=== PATIENT | female | born 1965 | race Two or more races ===

== ENCOUNTER 2023-08-19 11:08 | Outpatient (REF) | payer OTHER, SELFPAY ==
--- NOTE | ~2023-08-19 | XR_ITS ---
EXAMINATION: XR KNEE, LEFT CLINICAL INFORMATION: Pain. COMPARISON: None available. TECHNIQUE: Four views of the left knee. FINDINGS: Medial compartment: There are prominent marginal osteophytes along with joint space narrowing indicative of at least moderate osteoarthritis. Lateral compartment marginal osteophytes with non-uniform joint space narrowing indicative of izzs-[id number] osteoarthritis. Patellofemoral compartment: Prominent marginal osteophytes and cystic change along with mild joint space narrowing indicative of at least dcim-ke-tlcykmmp osteoarthritis. No effusion. XR/XR knee LT 4V IMPRESSION: Tricompartmental osteoarthritis with degenerative changes at least moderate in the medial compartment.
[2023-08-19 12:02] LABS: MANUAL DIFF FLAG NO
[2023-08-19 12:27] LABS: Basophils Percent Auto 0.5 % (0-2); Eosinophils Absolute Auto 0.2 X10*3/uL (0.0-0.4); Eosinophils Percent Auto 3.3 % (0-4); Hematocrit 38.4 % (37.0-47.0); Hemoglobin 12.5 g/dl (12.0-16.0); Imm Gran Abs Auto 0.01 X10*3/uL (0.00-0.03); Imm Gran Pct Auto 0.2 % (0.0-0.4); Lymphocytes Absolute Auto 2.3 X10*3/uL (1.2-4.9); Lymphocytes Percent Auto 39.8 % (20-40); Mean Corpuscular HGB Conc 32.6 g/dl (31.0-35.0); Mean Corpuscular Hemoglobin 29.6 pg (27.0-33.0); Mean Platelet Volume 10.1 fL (9.4-12.3); Monocytes Absolute Auto 0.5 X10*3/uL (0.1-1.2); Monocytes Percent Auto 8.1 % (2-11); Neutrophils Absolute Auto 2.8 x10*3/uL (2.0-8.3); Neutrophils Percent Auto 48.1 % (45-73); Platelet Count 292 X10*3/uL (160-400); Red Blood Count 4.22 X10*6/uL (4.20-5.50); Red Cell Distribution Width 13.6 % (11.0-16.0); White Blood Count 5.8 X10*3/uL (4.8-10.8)
[2023-08-19 13:01] LABS: Alanine Aminotransferase 23 U/L (0-31); Albumin Level 4.3 g/dL (3.5-5.0); Alkaline Phosphatase 75 U/L (39-117); Anion Gap 10 (12-20); Aspartate Amino Transferase 18 U/L (5-31); Bilirubin Total 0.4 mg/dL (0.0-1.0); Blood Urea Nitrogen 15 mg/dL (9-16); Calcium 9.5 mg/dL (8.4-10.2); Carbon Dioxide 29 mmol/L (22-29); Chloride 106 mmol/L (96-108); Cholesterol 166 mg/dL (<200); Estimated Glomerular Filt Rate > 60; Glucose Random 99 mg/dL (60-115); HDL Cholesterol 38 mg/dL (>40); LDL Cholesterol Calculated 109 mg/dL (<100); Sodium 141 mmol/L (135-145); Total Protein 7.5 g/dL (6.5-8.0); Triglycerides 99 mg/dL (<150)
[2023-08-19 13:12] LABS: Estimated Average Glucose 126 mg/dL; Hemoglobin A1C 134.5167 umol/L
[2023-08-19 13:18] LABS: Thyroid Stimulating Hormone 1.67 uIU/mL (0.32-4.0)
[2023-08-22 03:49] LABS: TS Negative Control Passed; TS Panel A 0; TS Panel B 8; TS Positive Control Passed; TSpotTB Positive (Negative)
== END 2023-08-19 11:09 | disposition home or self-care (01) ==
LOC: HO.LAB 11:08
PROVIDERS: PCP Internal Medicine; Visit Provider Internal Medicine
DX: Z00.01 Encounter for general adult medical examination with abnormal findings (principal); M17.12 Unilateral primary osteoarthritis, left knee; E66.8 Other obesity; E78.00 Pure hypercholesterolemia, unspecified; I10 Essential (primary) hypertension; K59.00 Constipation, unspecified
CPT/HCPCS: 36415; 73564; 80053; 80061; 83036; 84443; 85025; 86481

== ENCOUNTER 2023-09-15 11:02 | Outpatient (AMB) | payer OTHER, SELFPAY ==
--- NOTE | 2023-09-15 11:10 | A.OFFVIS_ITS ---
Intake Visit Reasons: N/P B/L knee O.A Intake Note: Nasrin a 57 year old Macedonian speaking female who presents today as a new patient for an evaluation of bilateral knee pain. Patient reports knee pain has been present for about 4-5 years with her left knee being the worse. States her right knee gives out therefore she avoids bearing full weight on right leg. Her pain is located on the lateral and medial aspect of knees. She hears a crack with movement of her knees. States 30 years ago she had fluid removed from her left knee due to an injury. No other tx. Finds no relief with Tylenol. 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 She states she has worsening pain in her bilateral knees that is worse on her left knee. Her right knee gives out therefore she avoids bearing full weight on the right leg. She reports her pain is at the lateral aspect and medial aspect of her knees that is aggravated with stairs and walking. She also hears a ?crack? with movement of her knees. She has not had any prior treatment in the past. She finds no relief with Tylenol. PFSH Surgical History (Updated 09/15/23 @ 11:36 by ALEXSANDER Tenroio) Hx of tubal ligation Social History (Updated 09/15/23 @ 11:36 by ALEXSANDER Tenorio) Patient Tobacco Use Status: Never used Tobacco Current occupational status: unemployed Review of Systems Const All systems reviewed & are unremarkable except as noted in HPI and below Physical Exam Const General: cooperative, healthy appearing, comfortable, no acute distress, well developed and alert Orientation/consciousness: patient oriented x3 HEENT Head: Yes normal to inspection, Yes normocephalic and Yes atraumatic Eyes General: appearance normal, both eyes and all related structures Resp Effort & Inspection: normal respiratory effort and able to speak in complete sentences Cardio Rate: regular rate Peripheral pulses: Peripheral pulses 2+ throughout GI Palpation (GI): Soft to palpation Skin Lesions: no lesions Rashes: no rashes Neuro General: patient oriented x3 Extrem Other: Bilateral knee: Skin intact, no erythema or joint effusion. Tenderness along the medial and lateral joint line. Full ROM with crepitus. Negative Eun?s. No ligamentous laxity. NVI. ? Office Procedures Joint Injection/Drain Joint Injection/Drain Primary Site: right knee Secondary Site: left knee Prep: site was prepped using aseptic technique, ethochloride spray was applied and injection warnings given Injected: 40 mg of, DepoMedrol, with 8 mL of, 1% plain lidocaine and in the joint Approach Used: anterolateral Procedure: The patient tolerated the procedure well and there was some relief with the local anesthesia Coding 72985 - Glenohumeral/Tronchanteric Bursa/Intraarticular Procedure code (CPT) selection complete Results Reviewed Results Reviewed: Xrays were obtained in the office today and personally reviewed by me of bilat knee Tricompartmental osteoarthritis with degenerative changes at least moderate in the medial compartment. Assessment & Plan Assessment & Plan (1) Osteoarthritis of knees, bilateral: Code(s): M17.0 - Bilateral primary osteoarthritis of knee Category: Medical Qualifiers: Osteoarthritis type: primary Qualified Code(s): M17.0 - Bilateral primary osteoarthritis of knee Plan We discussed options today, which include steroid injection. The patient did consent to move forward with the bilateral knee injection, which was tolerated well. I recommended rest, ice, and elevation and OTC anti-inflammatories as needed for discomfort. If symptoms persist or worsen over the next 6-8 weeks, patient will contact the office, otherwise follow-up as needed. ? Orders: Orders XR knee RT 3V 09/15/23 M17.11 - Unilateral primary osteoarthritis, right knee XR knee LT 3V 09/15/23 M25.562 - Pain in left knee Patient Instructions: Scribed for Charlie Landis PA-C, by Rishi Sosa quality engineer medical device, on 09/15/2023 at 11:00 AM EST.? I, Charlie Landis PA-C, have personally reviewed and agree with the information entered by the scribe. Coding Level of Care Code New Pt Level 3 (50002) Diagnoses Primary osteoarthritis of both knees M17.0 Osteoarthritis type: primary CPT Codes Coding - Joint 7: 21036 - Glenohumeral/Tronchanteric Bursa/Intraarticular ([id number])
== END 2023-09-15 12:02 | disposition home or self-care (01) ==
LOC: HO.HOS 11:02
PROVIDERS: PCP Internal Medicine; Visit Provider Physician Assistant
DX: M17.0 Bilateral primary osteoarthritis of knee (principal)
CPT/HCPCS: 20610; 99203

== ENCOUNTER 2023-09-15 11:08 | Outpatient (REF) | payer OTHER, SELFPAY ==
--- NOTE | ~2023-09-15 | XR_ITS ---
EXAMINATION: XR BILATERAL KNEES CLINICAL INFORMATION: Unilateral primary osteoarthritis right knee. Pain left knee. COMPARISON: August 19, 2023. TECHNIQUE: AP standing, sunrise and lateral views of each knee. FINDINGS: LEFT KNEE: Moderate joint effusion. Tricompartmental osteophytes. Narrowing of the tricompartments is most marked in the medial compartment. Asymmetric lateral narrowing in the patellofemoral compartment. Bones are diffusely demineralized. RIGHT KNEE: Moderate joint effusion. Bones are diffusely demineralized. Tricompartmental osteophytes. Moderate tricompartmental joint space narrowing. XR/XR knee RT 3V IMPRESSION: Moderate degenerative changes bilateral knees.
--- NOTE | ~2023-09-15 | XR_ITS ---
EXAMINATION: XR BILATERAL KNEES CLINICAL INFORMATION: Unilateral primary osteoarthritis right knee. Pain left knee. COMPARISON: August 19, 2023. TECHNIQUE: AP standing, sunrise and lateral views of each knee. FINDINGS: LEFT KNEE: Moderate joint effusion. Tricompartmental osteophytes. Narrowing of the tricompartments is most marked in the medial compartment. Asymmetric lateral narrowing in the patellofemoral compartment. Bones are diffusely demineralized. RIGHT KNEE: Moderate joint effusion. Bones are diffusely demineralized. Tricompartmental osteophytes. Moderate tricompartmental joint space narrowing. XR/XR knee LT 3V IMPRESSION: Moderate degenerative changes bilateral knees.
== END 2023-09-15 11:09 | disposition home or self-care (01) ==
LOC: HO.HOSX 11:08
PROVIDERS: Visit Provider Physician Assistant
DX: M17.11 Unilateral primary osteoarthritis, right knee (principal); M25.562 Pain in left knee
CPT/HCPCS: 73562

== ENCOUNTER → 2023-09-15 13:52 | Outpatient (REF) | payer OTHER, SELFPAY ==
--- NOTE | 2023-09-15 13:55 | CA_ITS ---
Transthoracic Echocardiogram Patient (Last, First, Middle): Nasrin Valdivia, Gender: Female Date of : 1965 Age: 57 Procedure Date: 09/15/2023 Procedure Type: Transthoracic Echocardiogram Location: OP Height: 170.18 cm Weight: 120.2 kg BSA: 2.28 m2 Heart Rate: 82 bpm BP: 126 / 80 mmHg Dam Attendant: TO Referring MD: Ana Elizabeth MD Timber Packer: Dominik Shah MD Symptoms: HTN I.10 HTN Study Quality: Adequate w contrast ECG Rhythm: Sinus Conclusions: - 1. Normal LV ejection fraction of 55-60% 2. Cardiac valvular Doppler is within normal limits 3. Trivial pericardial effusion Findings Procedure Information Contrast agent, definity, is being given per protocol without apparent complications. Left Ventricle Normal left ventricular size, thickness, and systolic function. The visually estimated ejection fraction is between 55-60%. Spectral Doppler is indicative of a normal filling pattern. Right Ventricle Normal right ventricular cavity size and systolic function. Atria The left atrium is normal in size. Interatrial shunt cannot be excluded. The right atrium was not well visualized. Aortic Valve The aortic valve structure and function is likely normal. There is no aortic valve stenosis. There is no aortic valve regurgitation. Mitral Valve Normal mitral valve structure and function. There is trace mitral valve regurgitation. There is no mitral valve stenosis. Pulmonic Valve The pulmonic valve is likely normal. Tricuspid Valve Normal tricuspid valve structure. Tricuspid regurgitation envelope is inadequate for calculation of right ventricular systolic pressure. Normal right atrial pressure. Great Vessels All visible segments of the aorta are normal in size. The pulmonary artery was not well visualized. Venous The inferior vena cava is normal in size and collapses greater than 50% with inspiration. Pericardium/Pleural There is a trivial pericardial effusion. Prior Study Comparison No prior study available for comparison. Measurements 2D Linear Measurements IVSd: 1.12 0.6-0.9/0.6-1.0 cm LVIDd: 4.46 3.9-5.3/4.2-5.9 cm LVIDd Index: 1.96 2.4-3.2/2.2-3.1 cm/m2 LVIDs: 2.76 2.0-3.6 cm LVPWd: 0.89 0.7-1.1 cm LA Diam: 4.10 2.7-3.8/3.0-4.0 cm LAIDs Index: 1.80 1.5-2.3 cm/m2 LV Mass: 189.02 67-162/88-224 g LV Mass Index: 82.90 43-95/49-115 g/m2 LVOT Diam: 2.00 3.0+(-)1.3 cm 2D Systolic Function EF 4C: 59.50 >55% EF 2C: 61.50 >55% EF BiP: 59.20 >55% Mitral Valve MV Pk E: 0.97 MV PK A: 0.63 MV Decel Time: 165.00 E/A: 1.50 E'Lateral: 7.51 E'Medial: 5.77 E/E' Med: 16.80 E/E' Lat: 12.90 PHT: 48.00 MVA PHT: 4.58 Decel [place]: 5.88 Aortic Valve AoV Pk Adam: 1.65 AoV Mn Adam: 1.14 AoV VTI: 0.35 AoV Pk Grad: 11.00 Aov Mn Grad: 6.00 JAYCE Cont.VTI: 2.47 LVOT LVOT Pk Adam: 1.32 LVOT Mn Adam: 0.87 LVOT VTI: 0.28 LVOT Pk Grad: 7.00 LVOT Mn Grad: 3.00 LVOT Diam: 2.00 LVOT Area: 3.14 Diastolic Function MV Pk E: 0.97 MV Pk A: 0.63 E/A: 1.50 E'Medial: 5.77 E/E' Med: 16.80 E' Laterial: 7.51 E/E' Lat: 12.90 Right Ventricle TAPSE (mm): 25.60 TVS' Adam: 12.80 Tricuspid Valve RA Press: 3.00 Great Vessels Aorta Sinus of Valsalva: 3.02 2.0-3.5 cm Ao Asc: 3.30 2.1-3.4 cm Ao Arch: 3.10 Updated in Other Vendor System with Status of Final Dominik Shah MD electronically signed on 09/15/2023 4:05:25 PM with status of Final
== END ==
LOC: HO.CARD 13:52
PROVIDERS: PCP Internal Medicine; Visit Provider Internal Medicine
DX: I10 Essential (primary) hypertension (principal)
CPT/HCPCS: 20610; 93306; 99202; J1010; Q9957

== ENCOUNTER → 2023-09-15 13:55 | Outpatient (BNV) | payer OTHER, SELFPAY | PROVIDERS: PCP Internal Medicine; Visit Provider Internal Medicine Cardiovascular Disease | DX: I10 Essential (primary) hypertension (principal) | CPT/HCPCS: 93306 ==

== ENCOUNTER 2023-09-17 09:11 | Outpatient (REF) | payer OTHER, SELFPAY ==
--- NOTE | ~2023-09-17 | XR_ITS ---
EXAMINATION: XR CHEST CLINICAL INFORMATION: Positive TB test COMPARISON: None available. TECHNIQUE: 2 views of the chest were obtained. FINDINGS: No significant abnormality is noted involving the heart, lungs, mediastinum, bony thorax or soft tissues. XR/XR chest 2V IMPRESSION: Unremarkable examination.
== END 2023-09-17 09:12 | disposition home or self-care (01) ==
LOC: HO.XRAY 09:11
PROVIDERS: PCP Internal Medicine; Visit Provider Internal Medicine
DX: R76.11 Nonspecific reaction to tuberculin skin test without active tuberculosis (principal)
CPT/HCPCS: 71046

== ENCOUNTER 2023-10-14 11:31 | Outpatient (AMB) | payer OTHER, SELFPAY ==
--- NOTE | 2023-10-14 11:35 | MHC.OFFVIS ---
Vital Signs 10/14/23 11:36 Height 5 ft 7 in Weight 257 lb 15.053 oz BMI 40.4 BP 116/61 Blood Pressure Location Lt brachial Position Sitting Pulse 80 Intake Visit Reasons: colonoscopy Intake Note: Nasrin presents to in office visit today as a new patient for colonoscopy screening. CC: Patient c/o constipation, and hx of rectal bleeding. She also reports abdominal bloating and discomfort when constipated. Assistant Branch Manager Required: Yes Accompanied by: Daughter Allergies No Known Allergies Allergy (Verified 10/14/23 11:42) HPI HPI colonoscopy: Details: 57-year-old female here for preprocedural meeting to discuss a screening colonoscopy. She is referred by Lillie Elizabeth. PMX Morbid obesity Hypertension High cholesterol * SURGICAL HISTORY Tubal ligation * ALLERGIES: NKDA * iBid2Save LABS: Laboratory Tests 08/19/23 11:59 WBC 5.8 Hgb 12.5 Hct 38.4 Plt Count 292 Estimated GFR > 60 Total Bilirubin 0.4 AST 18 ALT 23 Alkaline Phosphatase 75 TSH 1.67 TODAY'S VISIT [facility] #[id number] [place] She is here with a female family member who is non participative. This is her first colonoscopy. She struggles with CIC and she tries to increase her fiber and takes pills but they don't work very well. IT is an OTC. She would like to try a more advanced approach since she has failed fiber, senna, miralax and dulcolax. There are no prior problems with anesthesia or sedation. There are no infectious disease problems. Start LInzess 145 and titrate No known FHX crc or polyps Return office visit in 2 weeks to evaluate her response to the Linzess. [facility] Medical History (Updated 10/14/23 @ 12:39 by DANNY Rea) Obesity, morbid High cholesterol Hypertension Surgical History (Updated 09/15/23 @ 11:36 by Anita Fiore A) Hx of tubal ligation Family History (Updated 10/14/23 @ 11:42 by [facility] Father Cancer of neck Brother Leukemia Paternal Aunt Vaginal cancer Social History (Updated 10/06/23 @ 09:50 by Jo Cavazos CCM) Alcohol intake: current Alcohol intake frequency: holidays/special occasions only Patient Tobacco Use Status: Never used Tobacco Use of substances other than those prescribed or required for medical reasons: No Current occupational status: unemployed Review of Systems Const Denies fatigue, Denies fever(s), Denies night sweats, Denies poor appetite and Denies weight loss ENT Reports Normal hearing present, Denies dental pain, Denies dysphagia, Denies hearing loss, Denies mouth pain, Denies odynophagia, Denies throat swelling, Denies tongue swelling and Reports other (Dentition adequate) Card Reports no additional complaints Resp Reports no additional complaints GI Details: Denies abdominal pain, Denies melena, Denies bloating, Denies hematochezia, Reports constipation, Denies GI cramping, Denies dysphagia, Denies excessive flatus, Denies early satiety, Denies heartburn, Denies diarrhea, Denies nausea, Denies odynophagia, Denies vomiting and Denies hematemesis Skin/Breast Denies pruritus, Denies lesions, Denies rash and Denies jaundice Neuro Reports Normal hearing present and Denies Abnormal speech present Endo Denies fatigue Aller/Immun Denies throat swelling and Denies tongue swelling Physical Exam Vital Signs: Last Vital Signs Pulse 80 10/14/23 11:36 BP 116/61 10/14/23 11:36 BMI result Body Mass Index 40.4 Const General: cooperative, no acute distress, well developed and well groomed Nutritional Appearance: well nourished and obese Orientation/consciousness: oriented to person, oriented to place and oriented to time Limitations: language barrier HEENT Head: Yes normocephalic and Yes atraumatic Eyes General: appearance normal, both eyes and all related structures Pupils: Equal, round and reactive pupils present Neck Neck: Yes normal visual inspection and Yes no lymphadenopathy Thyroid: Thyroid normal Resp Effort & Inspection: normal respiratory effort and able to speak in complete sentences Auscultation: clear to auscultation bilaterally Cardio Rate: regular rate Rhythm: regular rhythm Heart sounds: Normal, physiologic split S2 sound present Peripheral pulses: radial pulses present and posterior tibial pulses present GI Inspection: No distended, Yes Abdominal panniculus present and Yes obesity Palpation (GI): Soft to palpation, nontender, no guarding, not rigid and No hepatosplenomegaly present Percussion: Yes normal to percussion Auscultation: normal bowel sounds Rectal Exam - Female: deferred Skin General skin exam: no rashes or lesions noted, turgor normal, skin not dry, no jaundice, No spider nevi and no striae Rashes: no rashes Nails: normal Neuro General: oriented to person, oriented to place and oriented to time Cranial nerves: Yes Equal, round and reactive pupils present and Yes Normal hearing present Speech: No Abnormal speech present Extrem General: Yes normal to inspection, No clubbing, No cyanosis and No edema Psych Appearance: grossly normal and well kempt Mental Status: mental status grossly normal Speech and movement: Normal speech and movement present Affect: normal affect Attitude: cooperative Thought process: Normal thought process present and not confabulating Thought content: Normal thought content present Insight: Fair insight present (Psych) Judgement: Fair judgement present (Psych) Results Reviewed Results Reviewed: Laboratory Tests 08/19/23 11:59 WBC 5.8 Hgb 12.5 Hct 38.4 Plt Count 292 Estimated GFR > 60 Total Bilirubin 0.4 AST 18 ALT 23 Alkaline Phosphatase 75 TSH 1.67 Assessment & Plan Assessment & Plan (1) Pre-op examination: Code(s): Z01.818 - Encounter for other preprocedural examination Category: Medical (2) Chronic idiopathic constipation: Code(s): K59.04 - Chronic idiopathic constipation Category: Medical Plan [facility] #[id number] [place] She is here with a female family member who is non participative. This is her first colonoscopy. She struggles with CIC and she tries to increase her fiber and takes pills but they don't work very well. IT is an OTC. She would like to try a more advanced approach since she has failed fiber, senna, miralax and dulcolax. There are no prior problems with anesthesia or sedation. There are no infectious disease problems. Start LInzess 145 and titrate No known FHX crc or polyps Return office visit in 2 weeks to evaluate her response to the Linzess. COLONOSCOPY BIOPSY Orders: Orders Colonoscopy - GI Use Only 10/14/23 K59.04 - Chronic idiopathic constipation, Z01.818 - Encounter for other preprocedural examination Medications: New peg 3350-electrolytes 236-22.74-6.74 -5.86 gram (Golytely) until fecal effluent is clear; do not exceed a total volume of 2,000 mL 240 mL PO Q10M 4,000 mL 0RF 1 day Z12.11 - Encounter for screening for malignant neoplasm of colon bisacodyl (Dulcolax (bisacodyl)) 10 mg (2 x 5 mg) PO BEDTIME 4 tabs 0RF 2 days linaclotide (Linzess) 145 mcg PO QAM 30 caps 3RF K59.04 - Chronic idiopathic constipation Coding Level of Care Code New Pt Level 3 (42653) Diagnoses Pre-op examination Z01.818 Chronic idiopathic constipation K59.04
[2023-10-14 11:36] VITALS: BP 116/61; PULSE 80; BMI 40.4
== END 2023-10-14 12:44 | disposition home or self-care (01) ==
PROVIDERS: PCP Internal Medicine; Visit Provider Nurse Practitioner
DX: Z01.818 Encounter for other preprocedural examination (principal); K59.04 Chronic idiopathic constipation
CPT/HCPCS: 99203

== ENCOUNTER → 2023-10-14 11:31 | Outpatient (BNVA) | payer OTHER, SELFPAY | PROVIDERS: PCP Internal Medicine; Visit Provider Nurse Practitioner | DX: Z01.818 Encounter for other preprocedural examination (principal); K59.04 Chronic idiopathic constipation | CPT/HCPCS: 99202 ==

== ENCOUNTER 2023-10-15 12:59 | Outpatient (RCR) | payer OTHER, SELFPAY ==
--- NOTE | 2023-10-15 15:56 | MHC.PT.EP ---
[facility] [place] Office [place] Office [place] Office [address] [phone] F: [phone] F: [phone] F: [phone] F: [phone] Physical Therapy Plan of Care Date of Evaluation: 10/15/23 Date of Surgery: Diagnosis: LBP. Assessment: Pt is a 57 y/o female referred to PT for eval and treat of LBP which is resulting in decreased tolerance for standing and walking for duration, performing HH chores, and negotiating stairs secondary to decreased L LE length compared to R, decreased trunk ROM, decreased trunk and hip strength, increased lumbar lordosis posture and pain. Pt is deemed an appropriate candidate to receive skilled PT services to address their physical impairments in order to improve their functional ability. Frequency and Duration: The patient will be seen 2 x/ wk x 4 wks. Short Term Goals: initiate home program. Pt will improve baseline pain to at most 5/10; initial: 9/10. Usp Goals: I with home program. Improve Hailey by at least 9 points. Pt will report no longer disturbed sleep d/t LBP. Pt will be able to tolerate walking long distances with managed LBP. Treatment Plan: Modalities to reduce pain, spasms and effusion. Manual therapy to restore motion and function. Therapeutic exercise to improve strength and flexibility. Neuromuscular re-education for posture and balance. Therapeutic activities to return to functional activities of daily living. Electronically signed by: Michael Story PT. Please sign and return to therapist. Thank you for your referral.
--- NOTE | 2023-12-30 14:18 | MHC.PT.DC ---
[facility] [place] Office [place] Office [place] Office [address] Solomon Peres [address] [phone] F: [phone] F: [phone] F: [phone] F: [phone] Physical Therapy Discharge Report Diagnosis: LBP. Date of Surgery: Date of Evaluation: 10/15/23 Date of Discharge: 12/30/23 Treatments to Date: 1 Cancellations to Date: 2 No Shows to Date: 1 Discharge Status: Patient Elected to Stop Visit Non-compliance Discharge Summary: Pt did not attempt PT for her condition logging 2 cancellations and a no-show appointment after her evaluation without following up with therapy. Electronically signed by: Michael Story PT. Please sign and return to therapist. Thank you for your referral.
== END 2023-12-30 14:22 | disposition home or self-care (01) ==
LOC: HO.PT 12:59
PROVIDERS: PCP Internal Medicine; Visit Provider Internal Medicine
DX: M54.50 Low back pain, unspecified (principal)
CPT/HCPCS: 97110; 97161

== ENCOUNTER 2023-12-16 12:51 | Outpatient (AMB) | payer OTHER, SELFPAY ==
--- NOTE | 2023-12-16 12:59 | MHC.OFFVIS ---
Vital Signs 12/16/23 13:02 Height 5 ft 7 in Weight 257 lb BMI 40.2 Intake Visit Reasons: OV-B/L knee O.A-3 month follow up Intake Note: Nasrin a 57 year old German speaking female who presents today for a follow up of bilateral knee pain, last injection 09/15/23. Patient reports last injection provided her relief, states her pain is returned however not as bad as before. She would like to repeat injections. Facilities Planner Name: Devonte ID#[id number] Allergies No Known Allergies Allergy (Verified 12/16/23 13:02) Medication List - Last Reconciled 12/16/23 by Charlie Landis PA-C bisacodyl (Dulcolax (bisacodyl)) 10 mg (2 x 5 mg) PO BEDTIME 2 days ezetimibe 10 mg PO DAILY linaclotide (Linzess) 145 mcg PO QAM losartan 100 mg PO DAILY melatonin mg PO peg 3350-electrolytes 236-22.74-6.74 -5.86 gram (Golytely) 240 mL PO Q10M 1 day rosuvastatin 40 mg PO DAILY HPI HPI OV-B/L knee O.A-3 month follow up: Details: 58-year-old German speaking female who returns to the office today with an foreign language interpreter for a follow-up of bilateral knee pain. She currently states she has pain in her knees that comes with activities. She had her last injection on 09/15/23 that provided her relief until recently. She would like to repeat the injection today. She does not have a history of diabetes. [facility] Medical History (Updated 10/14/23 @ 12:39 by DANNY Rea) Obesity, morbid High cholesterol Hypertension Surgical History Hx of tubal ligation Family History (Updated 10/14/23 @ 11:42 by [facility] Father Cancer of neck Brother Leukemia Paternal Aunt Vaginal cancer Social History Alcohol intake: current Alcohol intake frequency: holidays/special occasions only Patient Tobacco Use Status: Never used Tobacco Current occupational status: unemployed Review of Systems Const All systems reviewed & are unremarkable except as noted in HPI and below Physical Exam Vital Signs: BMI result Body Mass Index 40.2 Const General: cooperative, healthy appearing, comfortable, no acute distress, well developed and alert Orientation/consciousness: patient oriented x3 HEENT Head: Yes normal to inspection, Yes normocephalic and Yes atraumatic Eyes General: appearance normal, both eyes and all related structures Resp Effort & Inspection: normal respiratory effort and able to speak in complete sentences Cardio Rate: regular rate Peripheral pulses: Peripheral pulses 2+ throughout GI Palpation (GI): Soft to palpation Skin Lesions: no lesions Rashes: no rashes Neuro General: patient oriented x3 Extrem Other: Bilateral knee: Skin intact, no erythema or joint effusion. Tenderness along the medial and lateral joint line. Full ROM with crepitus. Negative Eun?s. No ligamentous laxity. NVI. ? Office Procedures Joint Injection/Aspiration Joint Injection/Aspiration Primary Site: right knee Secondary Site: left knee Prep: site was prepped using aseptic technique, ethochloride spray was applied and injection warnings given Injected: 40 mg of, DepoMedrol, with 8 mL of, 1% plain lidocaine and in the joint Approach Used: anterolateral Procedure: The patient tolerated the procedure well and there was some relief with the local anesthesia Coding 46640 - Glenohumeral/Tronchanteric Bursa/Intraarticular Procedure code (CPT) selection complete Assessment & Plan Assessment & Plan (1) Osteoarthritis of knees, bilateral: Code(s): M17.0 - Bilateral primary osteoarthritis of knee Category: Medical Qualifiers: Osteoarthritis type: primary Qualified Code(s): M17.0 - Bilateral primary osteoarthritis of knee Plan We discussed options today, which include steroid injection. The patient did consent to move forward with the bilateral knee injection, which was tolerated well. I recommended rest, ice, and elevation and OTC anti-inflammatories as needed for discomfort. If symptoms persist or worsen martin the 6-8 weeks, patient will contact the office, otherwise follow-up as needed. Patient Instructions: Scribed for Charlie Landis PA-C, by Rishi Sosa medical services coordinator, on 12/16/2023 at 12:45 PM EST.? I, Charlie Landis PA-C, have personally reviewed and agree with the information entered by the scribe. Coding Level of Care Code Est Pt Level 3 (21195) Complex EM visit Add On G2211 Diagnoses Primary osteoarthritis of both knees M17.0 Osteoarthritis type: primary CPT Codes Coding - Joint 7: 49156 - Glenohumeral/Tronchanteric Bursa/Intraarticular ([id number])
[2023-12-16 13:02] VITALS: BMI 40.2
== END 2023-12-16 13:30 | disposition home or self-care (01) ==
LOC: HO.HOS 12:51
PROVIDERS: PCP Internal Medicine; Visit Provider Physician Assistant
DX: M17.0 Bilateral primary osteoarthritis of knee (principal)
CPT/HCPCS: 20610; 99213

== ENCOUNTER 2023-12-16 13:34 | Outpatient (REF) | payer OTHER, SELFPAY ==
--- NOTE | ~2023-12-16 | MM_ITS ---
EXAMINATION: MM SCREENING DIGITAL BREAST TOMOSYNTHESIS, BILATERAL CLINICAL INFORMATION: Screening. Asymptomatic. COMPARISON: Mammography: Comparison is made with available priors TECHNIQUE: Digital breast mammography with tomosynthesis is performed in both the craniocaudal and mediolateral oblique views along with computer-aided detection (CAD). FINDINGS: There are scattered areas of fibroglandular density (ACR BI-RADS breast composition Category b). 2 skin keloid scars marked on the right medial breast. There are no significant masses, abnormal calcifications, or other abnormalities. MM/MM tomosynthesis screening BI IMPRESSION: No mammographic evidence of malignancy. ASSESSMENT: BI-RADS BI-RADS 1 - Negative RECOMMENDATION: Routine annual mammography screening. 1 year F/U This examination should not preclude the clinical evaluation of a suspicious palpable abnormality. This patient's information was entered into a reminder system with a target due date for their next mammogram. Electronically signed by: Giselle Card DO 12/29/2023 11:57 AM EDT
== END 2023-12-16 13:35 | disposition home or self-care (01) ==
LOC: HO.MAMMO 13:34
PROVIDERS: PCP Internal Medicine; Visit Provider Internal Medicine
DX: Z12.31 Encounter for screening mammogram for malignant neoplasm of breast (principal)
CPT/HCPCS: 20610; 77063; 77067; 99212; J1010

== ENCOUNTER → 2023-12-16 14:15 | Outpatient (BNV) | payer OTHER, SELFPAY | PROVIDERS: PCP Internal Medicine; Visit Provider Internal Medicine | DX: Z12.31 Encounter for screening mammogram for malignant neoplasm of breast (principal) | CPT/HCPCS: 77063; 77067 ==

== ENCOUNTER 2024-01-18 11:57 | Outpatient (AMB) | payer OTHER, SELFPAY ==
--- NOTE | 2024-01-18 12:16 | A.OFFVIS_ITS ---
Vital Signs 01/18/24 12:18 Height 5 ft 7 in Weight 244 lb 11.41 oz BMI 38.3 BP 124/68 Blood Pressure Location Rt brachial Position Sitting Pulse 66 Pulse Source Pulse Oximeter Pulse Oximetry (%) 99 Oxygen Delivery Method Room Air Intake Visit Reasons: 2 week follow up PT N/S last appt Intake Note: Relevant Flags or Indicators ? Requires Fire Investigation Lieutenant? Y Nasrin presents in office today for a scheduled 3 mos FUV CC; Since last visit; labs ordered ? none. Rx ordered ? yes (PEG prep and linzes s). Diagnostics/images ordered ? none. Relevant GI Sx as reported per pt? Fecal abnormalities o?? Constipation ? Abdominal Pain o?? Lower B/L present mostly when having BM which pt states takes much longer than normal. ? Hx of any recent surgeries? None Fire Investigation Lieutenant Required: Yes Fire Investigation Lieutenant Services: Fire Investigation Lieutenant Present Fire Investigation Lieutenant Name: [id number] -- David Accompanied by: Family/Other Allergies No Known Allergies Allergy (Verified 01/18/24 12:17) HPI HPI 2 week follow up PT N/S last appt: Details: Thai #[id number] [place] She is here with a female family member who is non participative. THis is her first colonoscopy. She struggles with CIC and she tries to increase her fiber and takes pills but they don't work very well. IT is an OTC. She would like to try a more advanced approach since she has failed fiber, senna, miralax and dulcolax. Start LInzess 145 acd titrate No known FHX crc or polypls Assessment & Plan (1) Pre-op examination: Code(s): Z01.818 - Encounter for other preprocedural examination Category: Medical (2) Chronic idiopathic constipation: Code(s): K59.04 - Chronic idiopathic constipation Category: Medical Orders: Orders Colonoscopy - GI Use Only Today K59.04 - Chronic idiopathic constipation, Z01.818 - Encounter for other preprocedural examination Medications: New peg 3350-electrolytes 236-22.74-6.74 -5.86 gram (Golytely) until fecal effluent is clear; do not exceed a total volume of 2,000 mL 240 mL PO Q10M 1 day 4,000 mL 0RF Z12.11 - Encounter for screening for malignant neoplasm of colon bisacodyl (Dulcolax (bisacodyl)) 10 mg (2 x 5 mg) PO BEDTIME 2 days 4 tabs 0RF linaclotide (Linzess) 145 mcg PO QAM 30 caps 3RF K59.04 - Chronic idiopathic constipation COLONOSCOPY BIOPSY CORRESPONDENCE On 12/02/23 @ 09:11 Tish Ramey Wrote To [facility] office has made several attempts to get ahold of pt 2calls and a letter was mailed. no response from pt removing from list. On 11/17/23 @ 09:54 Tish Ramey Wrote To [facility] left another message and letter rachel. On 11/01/23 @ 08:10 Tish Ramey Wrote To [facility] lvm, added to spread sheet. Tish Ramey completed item. TODAY'S VISIT Thai # Annamaria live Walking to schedulers with cage maker. Verify that all of her contact information seems to be appropriate so I am uncertain why she is having trouble getting her colonoscopy scheduled. No response with LInzess 145, will progress to LInzess 290 and bisacodyl qhs. ROV 2 weeks. PFSH Medical History Obesity, morbid High cholesterol Hypertension Surgical History Hx of tubal ligation Family History Father Cancer of neck Brother Leukemia Paternal Aunt Vaginal cancer Social History Alcohol intake: current Alcohol intake frequency: holidays/special occasions only Patient Tobacco Use Status: Never used Tobacco Current occupational status: unemployed Review of Systems Const Denies fatigue, Denies fever(s), Denies night sweats, Denies poor appetite and Denies weight loss ENT Reports Normal hearing present, Denies dental pain, Denies dysphagia, Denies hearing loss, Denies mouth pain, Denies odynophagia, Denies throat swelling, Denies tongue swelling and Reports other (Dentition adequate) Card Reports no additional complaints Resp Reports no additional complaints GI Details: Denies abdominal pain, Denies melena, Denies bloating, Denies hematochezia, Reports constipation, Denies GI cramping, Denies dysphagia, Denies excessive flatus, Denies early satiety, Denies heartburn, Denies diarrhea, Denies nausea, Denies odynophagia, Denies vomiting and Denies hematemesis Skin/Breast Denies pruritus, Denies lesions, Denies rash and Denies jaundice Neuro Reports Normal hearing present and Denies Abnormal speech present Endo Denies fatigue Aller/Immun Denies throat swelling and Denies tongue swelling Physical Exam Vital Signs: Last Vital Signs Pulse 66 01/18/24 12:18 BP 124/68 01/18/24 12:18 Pulse Ox 99 01/18/24 12:18 Oxygen Delivery Method Room Air 01/18/24 12:18 BMI result Body Mass Index 38.3 Const General: cooperative, no acute distress, well developed and well groomed Nutritional Appearance: well nourished and obese Orientation/consciousness: oriented to person, oriented to place and oriented to time Limitations: language barrier HEENT Head: Yes normocephalic and Yes atraumatic Eyes General: appearance normal, both eyes and all related structures Pupils: Equal, round and reactive pupils present Neck Neck: Yes normal visual inspection and Yes no lymphadenopathy Thyroid: Thyroid normal Resp Effort & Inspection: normal respiratory effort and able to speak in complete sentences Auscultation: clear to auscultation bilaterally Cardio Rate: regular rate Rhythm: regular rhythm Heart sounds: Normal, physiologic split S2 sound present Peripheral pulses: radial pulses present and posterior tibial pulses present GI Inspection: No distended, Yes Abdominal panniculus present and Yes obesity Palpation (GI): Soft to palpation, nontender, no guarding, not rigid and No hepatosplenomegaly present Percussion: Yes normal to percussion Auscultation: normal bowel sounds Rectal Exam - Female: deferred Skin General skin exam: no rashes or lesions noted, turgor normal, skin not dry, no jaundice, No spider nevi and no striae Rashes: no rashes Nails: normal Neuro General: oriented to person, oriented to place and oriented to time Cranial nerves: Yes Equal, round and reactive pupils present and Yes Normal hearing present Speech: No Abnormal speech present Extrem General: Yes normal to inspection, No clubbing, No cyanosis and No edema Psych Appearance: grossly normal and well kempt Mental Status: mental status grossly normal Speech and movement: Normal speech and movement present Affect: normal affect Attitude: cooperative Thought process: Normal thought process present and not confabulating Thought content: Normal thought content present Insight: Fair insight present (Psych) Judgement: Fair judgement present (Psych) Assessment & Plan Assessment & Plan (1) Chronic idiopathic constipation: Code(s): K5.04 - Chronic idiopathic constipation Category: Medical Plan Thai # Annamaria sonya Walking to schedulers with cage maker. Verify that all of her contact information seems to be appropriate so I am uncertain why she is having trouble getting her colonoscopy scheduled. No response with LInzess 145, will progress to LInzess 290 and bisacodyl qhs. ROV 2 weeks. Medications: New linaclotide (Linzess) 290 mcg PO QAM 30 caps 6RF 30 days K5. - Chronic idiopathic constipation Changed From bisacodyl (Dulcolax (bisacodyl)) 10 mg (2 x 5 mg) PO BEDTIME 2 days 4 tabs 0RF K5. - Chronic idiopathic constipation To bisacodyl (Dulcolax (bisacodyl)) 10 mg (2 x 5 mg) PO BEDTIME 60 tabs 6RF 30 days K5. - Chronic idiopathic constipation Discontinued linaclotide (Linzess) Discontinued Reason: Doctor's Order 145 mcg PO QAM 30 caps 3RF K5. - Chronic idiopathic constipation Coding Level of Care Code Est Pt Level 3 (90738) Diagnoses Chronic idiopathic constipation .
[2024-01-18 12:18] VITALS: BP 124/68; PULSE 66; O2SAT 99; BMI 38.3
== END 2024-01-18 12:53 | disposition home or self-care (01) ==
PROVIDERS: PCP Internal Medicine; Visit Provider Nurse Practitioner
DX: K59.04 Chronic idiopathic constipation (principal)
CPT/HCPCS: 99213

== ENCOUNTER → 2024-01-18 11:57 | Outpatient (BNVA) | payer OTHER, SELFPAY | PROVIDERS: PCP Internal Medicine; Visit Provider Nurse Practitioner | DX: Z01.818 Encounter for other preprocedural examination (principal); K59.04 Chronic idiopathic constipation | CPT/HCPCS: 99212 ==

== ENCOUNTER 2024-01-28 15:00 | Outpatient (RCR) | payer OTHER, SELFPAY ==
--- NOTE | 2024-01-18 16:26 | MHC.PT.EP ---
[facility] [place] Office [place] Office [place] Office [address] Solomon Peres [address] [phone] F: [phone] F: [phone] F: [phone] F: [phone] Physical Therapy Plan of Care Date of Evaluation: 01/18/24 Date of Surgery: NA Diagnosis: BACK AND KNEE PAIN Assessment: Pt IS 58 YO F REFERRED TO PT FROM DR WOODS WITH KNEE PAIN AND BACK PAIN. Pt REPORTS BACK BOTHERING HER MORE THAN KNEES (HAS HAD CORTISONE INJECTIONS WITH RELIEF). PRESENTS WITH LBP, INCREASED LORDOSIS, WEAK ABDOMINALS, SOME DECREASED L KNEE FLEXION. HAS NOT HAD PT IN PAST. SHOULD BENEFIT FROM PT TO ADDRESS THESE ISSUES Frequency and Duration: The patient will be seen 2X/WK X 6 WKS Short Term Goals: 1. INCREASED POSTURE AWARENESS AND AWARENESS OF BACK CARE 2. Pt TO PERF 2-3 TASKS WITH PROPER BODY MECH Clinic Physician Goals: 1. I HEP WITH DC EX PLAN 2. DECREASED BACK PAIN AT LEAST 50% WITH ADLS Treatment Plan: Modalities to reduce pain, spasms and effusion. Manual therapy to restore motion and function. Therapeutic exercise to improve strength and flexibility. Neuromuscular re-education for posture and balance. Therapeutic activities to return to functional activities of daily living. Electronically signed by: KIM SIM PT Please sign and return to therapist. Thank you for your referral.
--- NOTE | 2024-03-21 10:53 | MHC.PT.DC ---
[facility] [place] Office [place] Office [place] Office [address] Solomon Peres [address] [phone] F: [phone] F: [phone] F: [phone] F: [phone] Physical Therapy Discharge Report Diagnosis: BACK AND KNEE PAIN Date of Surgery: NA Date of Evaluation: 01/18/24 Date of Discharge: 03/21/24 Treatments to Date: 3 Cancellations to Date: 0 No Shows to Date: 0 Discharge Status: Patient Elected to Stop Discharge Summary: PER ASSESSMENT FROM LAST NOTE BY DILCIA JARRELL CHIMNEY BUILDER BRICK Pt with overall decrease in sxs today and so increased tolerance for exercises. No discomfort throughout and significantly improved ease of motion noted. Continue to progress core stab/stretching as able. Pt THEN CANCELLED HER LAST 4 VISITS NEW JOB PER CREDIT CONTROL ADMINISTRATOR Electronically signed by: KIM SIM PT Please sign and return to therapist. Thank you for your referral.
== END 2024-03-21 10:53 | disposition home or self-care (01) ==
LOC: HO.PT 15:00
PROVIDERS: PCP Internal Medicine; Visit Provider Internal Medicine
DX: M54.9 Dorsalgia, unspecified (principal); M25.562 Pain in left knee
CPT/HCPCS: 97110; 97161; 97535

== ENCOUNTER → 2024-06-12 00:05 | Outpatient (BNV) | payer OTHER, SELFPAY | PROVIDERS: Emergency Provider Emergency Medicine; PCP Internal Medicine; Visit Provider Radiology Diagnostic Radiology | DX: M54.2 Cervicalgia (principal); R51.9 Headache, unspecified; V89.2XXA Person injured in unspecified motor-vehicle accident, traffic, initial encounter | CPT/HCPCS: 70450; 72125 ==

== ENCOUNTER 2024-06-12 11:58 | Outpatient (REF) | payer OTHER, SELFPAY ==
[2024-06-12 12:15] LABS: MANUAL DIFF FLAG NO
[2024-06-12 12:38] LABS: Basophils Percent Auto 0.3 % (0-2); Eosinophils Absolute Auto 0.1 X10*3/uL (0.0-0.4); Eosinophils Percent Auto 2.2 % (0-4); Hematocrit 35.7 % (37.0-47.0); Hemoglobin 11.9 g/dl (12.0-16.0); Imm Gran Abs Auto 0.02 X10*3/uL (0.00-0.03); Imm Gran Pct Auto 0.3 % (0.0-0.4); Lymphocytes Absolute Auto 2.1 X10*3/uL (1.2-4.9); Lymphocytes Percent Auto 36.2 % (20-40); Mean Corpuscular HGB Conc 33.3 g/dl (31.0-35.0); Mean Corpuscular Hemoglobin 30.3 pg (27.0-33.0); Mean Corpuscular Volume 90.8 fL (80.0-98.0); Mean Platelet Volume 9.4 fL (9.4-12.3); Monocytes Absolute Auto 0.4 X10*3/uL (0.1-1.2); Monocytes Percent Auto 7.3 % (2-11); Neutrophils Absolute Auto 3.1 x10*3/uL (2.0-8.3); Neutrophils Percent Auto 53.7 % (45-73); Platelet Count 307 X10*3/uL (160-400); Red Blood Count 3.93 X10*6/uL (4.20-5.50); Red Cell Distribution Width 13.5 % (11.0-16.0); White Blood Count 5.9 X10*3/uL (4.8-10.8)
[2024-06-12 13:28] LABS: Alanine Aminotransferase 24 U/L (0-31); Albumin Level 4.2 g/dL (3.5-5.0); Alkaline Phosphatase 68 U/L (39-117); Anion Gap 9 (12-20); Aspartate Amino Transferase 20 U/L (5-31); Bilirubin Total 0.3 mg/dL (0.0-1.0); Blood Urea Nitrogen 13 mg/dL (9-16); Calcium 9.2 mg/dL (8.4-10.2); Carbon Dioxide 30 mmol/L (22-29); Chloride 106 mmol/L (96-108); Cholesterol 83 mg/dL (<200); Estimated Glomerular Filt Rate > 60; Glucose Random 96 mg/dL (60-115); HDL Cholesterol 41 mg/dL (>40); LDL Cholesterol Calculated 33 mg/dL (<100); Potassium 4.4 mmol/L (3.3-5.1); Sodium 141 mmol/L (135-145); Total Protein 7.4 g/dL (6.5-8.0); Triglycerides 47 mg/dL (<150)
[2024-06-12 13:29] LABS: Thyroid Stimulating Hormone 1.21 uIU/mL (0.32-4.0)
== END 2024-06-12 11:59 | disposition home or self-care (01) ==
LOC: HO.LAB 11:58
PROVIDERS: PCP Internal Medicine; Visit Provider Internal Medicine
DX: I10 Essential (primary) hypertension (principal); M54.50 Low back pain, unspecified; E78.00 Pure hypercholesterolemia, unspecified; R53.83 Other fatigue; E66.89 Other obesity not elsewhere classified; K59.00 Constipation, unspecified; R76.11 Nonspecific reaction to tuberculin skin test without active tuberculosis
CPT/HCPCS: 36415; 80053; 80061; 84443; 85025

== ENCOUNTER 2024-06-12 22:19 | Emergency (ER) | payer OTHER, SELFPAY ==
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
[2024-06-12 22:48] VITALS: BP 130/90; BP 134/77; PULSE 72; PULSE 82; RESP 20; TEMP 36.6; O2SAT 100; O2SAT 99; BMI 39.5
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
--- NOTE | 2024-06-12 23:48 | PC.NURSE ---
pt loom changeover operator to hospital attire, awaiting CT scan
[2024-06-12] MEDS: traMADoL HCL 50 MG TABLET PO (23:52)
[2024-06-12] MEDS: LORazepam 2 MG/ML VIAL 1 MG IM (23:52)
--- NOTE | 2024-06-12 23:55 | PC.NURSE ---
pt manager of change into hospital attire, medicated per mar.
[2024-06-13 02:26] VITALS: BP 100/64; PULSE 69; RESP 13; TEMP 36.7; O2SAT 99
--- NOTE | 2024-06-13 02:39 | PC.NURSE ---
re-assessed pt, pt reports feeling better, no longer C-sine precaution .A waiting disposition
[2024-06-13 02:49] VITALS: BP 100/64; PULSE 69; RESP 13; TEMP 36.7; O2SAT 99
--- NOTE | 2024-06-13 02:49 | PC.NURSE ---
reviewed discharge instructions with pt, pt verbalized understanding, no sign of distress upon discharge, pt had a steady gait.
== END 2024-06-13 02:50 | disposition home or self-care (01) ==
PROVIDERS: Emergency Provider Emergency Medicine; PCP Internal Medicine
DX: S40.011A Contusion of right shoulder, initial encounter (principal); S80.01XA Contusion of right knee, initial encounter; R51.9 Headache, unspecified; M54.2 Cervicalgia; M25.511 Pain in right shoulder; F41.9 Anxiety disorder, unspecified; V43.62XA Car passenger injured in collision with other type car in traffic accident, initial encounter; Y93.9 Activity, unspecified; Y92.410 Unspecified street and highway as the place of occurrence of the external cause; Y99.8 Other external cause status
CPT/HCPCS: 70450; 72125; 73030; 73560; 96372; 99284; J2060

== ENCOUNTER → 2024-06-13 | Outpatient (BNV) | payer OTHER, SELFPAY | PROVIDERS: Emergency Provider Emergency Medicine; PCP Internal Medicine; Visit Provider Radiology Diagnostic Radiology | DX: M25.511 Pain in right shoulder (principal); M25.561 Pain in right knee; V89.2XXA Person injured in unspecified motor-vehicle accident, traffic, initial encounter | CPT/HCPCS: 73030; 73560 ==

== ENCOUNTER 2024-07-25 10:39 | Outpatient (AMB) | payer OTHER, SELFPAY ==
--- NOTE | 2024-07-25 10:41 | MHC.OFFVIS ---
Vital Signs 07/25/24 10:43 Height 5 ft 6 in Weight 220 lb 7.396 oz BMI 35.6 BP 117/60 Blood Pressure Location Lt brachial Position Sitting Pulse 76 Intake Visit Reasons: f/u CIC Intake Note: Nasrin presents in the office as a follow up for CIC. CC: She states that she is going to the bathroom good since she has been using the linzess. 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 Verify that all of her contact information seems to be appropriate so I am uncertain why she is having trouble getting her colonoscopy scheduled. No response with LInzess 145, will progress to LInzess 290 and bisacodyl qhs. ROV 2 weeks. Medications: New linaclotide (Linzess) 290 mcg PO QAM 30 caps 6RF 30 days K59.04 - Chronic idiopathic constipation Changed From bisacodyl (Dulcolax (bisacodyl)) 10 mg (2 x 5 mg) PO BEDTIME 2 days 4 tabs 0RF K59.04 - Chronic idiopathic constipation To bisacodyl (Dulcolax (bisacodyl)) 10 mg (2 x 5 mg) PO BEDTIME 60 tabs 6RF 30 days K59.04 - Chronic idiopathic constipation Discontinued linaclotide (Linzess) Discontinued Reason: Doctor's Order 145 mcg PO QAM 30 caps 3RF K59.04 - Chronic idiopathic constipation COLONOSCOPY 04/20/2024 BIOPSY TODAY'S VISIT [facility] #[id number] She is doing very well on her LInzess at 290mcg. She is now ready to re schedule her colonoscopy, she had to cancel the last r/t a family emergency. She is now on Wegovy and is having occasional HB, alex when she does not move her bowels well. Will rx famotidine prn. There are no prior problems with anesthesia or sedation. There are no infectious disease problems. No known FHX crc or polyps ROV 6 mos. [facility] Medical History Obesity, morbid High cholesterol Hypertension Surgical History Hx of tubal ligation Family History Father Cancer of neck Brother Leukemia Paternal Aunt Vaginal cancer Social History Alcohol intake: current Alcohol intake frequency: does not drink Patient Tobacco Use Status: Never used Tobacco Current occupational status: unemployed Review of Systems Const Denies fatigue, Denies fever(s), Denies night sweats, Denies poor appetite and Denies weight loss Eyes Details: glasses Reports requires corrective lenses ENT Reports Normal hearing present, Denies dental pain, Denies dysphagia, Denies hearing loss, Denies mouth pain, Denies odynophagia, Denies throat swelling, Denies tongue swelling and Reports other (Dentition adequate) GI Details: Denies abdominal pain, Denies melena, Denies bloating, Denies hematochezia, Denies constipation, Denies GI cramping, Denies dysphagia, Denies excessive flatus, Denies early satiety, Denies heartburn, Denies diarrhea, Denies nausea, Denies odynophagia, Denies vomiting and Denies hematemesis Skin/Breast Denies pruritus, Denies lesions, Denies rash and Denies jaundice Neuro Reports Normal hearing present and Denies Abnormal speech present Endo Denies fatigue Aller/Immun Denies throat swelling and Denies tongue swelling Physical Exam Vital Signs: Last Vital Signs Pulse 76 07/25/24 10:43 BP 117/60 07/25/24 10:43 BMI result Body Mass Index 35.6 Const General: cooperative, no acute distress, well developed and well groomed Nutritional Appearance: well nourished, obese and overweight Orientation/consciousness: oriented to person, oriented to place and oriented to time Limitations: No language barrier, ambulation with cane, ambulation with walker and wheelchair HEENT Head: Yes normocephalic and Yes atraumatic Eyes General: appearance normal, both eyes and all related structures Pupils: Equal, round and reactive pupils present Neck Neck: Yes normal visual inspection and Yes no lymphadenopathy Thyroid: Thyroid normal Resp Effort & Inspection: normal respiratory effort and able to speak in complete sentences Auscultation: clear to auscultation bilaterally Cardio Rate: regular rate Rhythm: regular rhythm Heart sounds: Normal, physiologic split S2 sound present Peripheral pulses: radial pulses present and posterior tibial pulses present GI Inspection: No distended and No Abdominal panniculus present Palpation (GI): Soft to palpation, nontender, no guarding, not rigid, No hepatosplenomegaly present and Hepatosplenomegaly present Percussion: Yes normal to percussion Auscultation: normal bowel sounds Rectal Exam - Female: deferred Skin General skin exam: no rashes or lesions noted, turgor normal, skin not dry, no jaundice, No spider nevi and no striae Rashes: no rashes Nails: normal Neuro General: oriented to person, oriented to place and oriented to time Cranial nerves: Yes Equal, round and reactive pupils present and Yes Normal hearing present Speech: No Abnormal speech present Extrem General: Yes normal to inspection, No clubbing, No cyanosis and No edema Psych Thought process: Normal thought process present and not confabulating Thought content: Normal thought content present Insight: Good insight present (Psych) Judgement: Good judgement present (Psych) Results Reviewed Results Reviewed: Laboratory Tests 06/12/24 12:10 WBC 5.9 Hgb 11.9 L Hct 35.7 L MCV 90.8 MCH 30.3 Plt Count 307 Estimated GFR > 60 Total Bilirubin 0.3 AST 20 ALT 24 Alkaline Phosphatase 68 TSH 1.21 Assessment & Plan Assessment & Plan (1) Chronic idiopathic constipation: Code(s): K59.04 - Chronic idiopathic constipation Category: Medical (2) GERD (gastroesophageal reflux disease): Code(s): K21.9 - Gastro-esophageal reflux disease without esophagitis Category: Medical (3) Pre-op examination: Code(s): Z01.818 - Encounter for other preprocedural examination Category: Medical Plan [facility] #[id number] She is doing very well on her LInzess at 290mcg. She is now ready to re schedule her colonoscopy, she had to cancel the last r/t a family emergency. She is now on Wegovy and is having occasional HB, alex when she does not move her bowels well. Will rx famotidine prn. There are no prior problems with anesthesia or sedation. There are no infectious disease problems. No known FHX crc or polyps ROV 6 mos. Medications: New famotidine (Pepcid) 40 mg PO DAILY PRN 30 tabs 6RF heartburn K21.9 - Gastro-esophageal reflux disease without esophagitis Refilled bisacodyl (Dulcolax (bisacodyl)) 10 mg (2 x 5 mg) PO BEDTIME 60 tabs 6RF 30 days K59.04 - Chronic idiopathic constipation peg 3350-electrolytes 236-22.74-6.74 -5.86 gram (Golytely) until fecal effluent is clear; do not exceed a total volume of 2,000 mL 240 mL PO Q10M 4,000 mL 0RF 1 day Z12.11 - Encounter for screening for malignant neoplasm of colon linaclotide (Linzess) 290 mcg PO QAM 30 caps 6RF 30 days K59.04 - Chronic idiopathic constipation Coding Level of Care Code Est Pt Level 3 (99047) Diagnoses Chronic idiopathic constipation K59.04 GERD (gastroesophageal reflux disease) K21.9 Pre-op examination Z01.818
[2024-07-25 10:43] VITALS: BP 117/60; PULSE 76; BMI 35.6
== END 2024-07-25 11:26 | disposition home or self-care (01) ==
LOC: HO.HGI 10:40
PROVIDERS: PCP Internal Medicine; Visit Provider Nurse Practitioner
DX: K59.04 Chronic idiopathic constipation (principal); K21.9 Gastro-esophageal reflux disease without esophagitis; Z12.11 Encounter for screening for malignant neoplasm of colon
CPT/HCPCS: 99213

== ENCOUNTER → 2024-07-25 10:39 | Outpatient (BNVA) | payer OTHER, SELFPAY | PROVIDERS: PCP Internal Medicine; Visit Provider Nurse Practitioner | DX: Z01.818 Encounter for other preprocedural examination (principal); K59.04 Chronic idiopathic constipation; K21.9 Gastro-esophageal reflux disease without esophagitis; Z79.899 Other long term (current) drug therapy | CPT/HCPCS: 99212 ==

== ENCOUNTER 2024-10-13 11:04 | Outpatient (AMB) | payer OTHER, SELFPAY ==
--- NOTE | 2024-10-13 11:10 | A.OFFVIS_ITS ---
Intake Visit Reasons: OV- B/L knee OA - Last Injections 12/16/23 Intake Note: Jenna a 58 year old Bengali speaking female who presents today for a follow up of her Bilateral Knee OA. She was last seen on 12/16/23 where both of her knees were injected (40mg). Her injections gave her relief and she would like to repeat. Allergies No Known Allergies Allergy (Verified 10/13/24 11:19) HPI HPI OV- B/L knee OA - Last Injections 12/16/23: Details: 58-year-old female returns to the office today for bilateral knee pain. She had injections in November of last year which were helpful up until recently. She has pain along the anterior medial aspect of the knee which limits her ability to perform daily activities. [facility] Medical History Obesity, morbid High cholesterol Hypertension Surgical History Hx of tubal ligation Family History Father Cancer of neck Brother Leukemia Paternal Aunt Vaginal cancer Social History Alcohol intake: current Alcohol intake frequency: does not drink Patient Tobacco Use Status: Never used Tobacco Current occupational status: unemployed Review of Systems Const All systems reviewed & are unremarkable except as noted in HPI and below Physical Exam Const General: cooperative, healthy appearing, comfortable, no acute distress, well developed and alert Orientation/consciousness: patient oriented x3 HEENT Head: Yes normal to inspection, Yes normocephalic and Yes atraumatic Eyes General: appearance normal, both eyes and all related structures Resp Effort & Inspection: normal respiratory effort and able to speak in complete sentences Cardio Rate: regular rate Peripheral pulses: Peripheral pulses 2+ throughout GI Palpation (GI): Soft to palpation Skin Lesions: no lesions Rashes: no rashes Neuro General: patient oriented x3 Extrem Other: Bilateral knee: Skin intact, no erythema or joint effusion. Tenderness along the medial and lateral joint line. Full ROM with crepitus. Negative Eun?s. No ligamentous laxity. NVI. ? Office Procedures AMB Joint Injection/Aspiration Joint Injection/Aspiration Primary Site: right knee Secondary Site: left knee Prep: site was prepped using aseptic technique, ethochloride spray was applied and injection warnings given Injected: 80 mg of, DepoMedrol, with 8 mL of, 1% plain lidocaine and in the joint Approach Used: anterolateral Procedure: The patient tolerated the procedure well and there was some relief with the local anesthesia Coding 67901 - Glenohumeral/Tronchanteric Bursa/Intraarticular Procedure code (CPT) selection complete Assessment & Plan Assessment & Plan (1) Osteoarthritis of knees, bilateral: Code(s): M17.0 - Bilateral primary osteoarthritis of knee Category: Medical Qualifiers: Osteoarthritis type: primary Qualified Code(s): M17.0 - Bilateral primary osteoarthritis of knee Plan We discussed options today, which include steroid injection. The patient did consent to move forward with the bilateral knee injection, which was tolerated well. I recommended rest, ice, and elevation and OTC anti-inflammatories as needed for discomfort. If symptoms persist or worsen martin the 6-8 weeks, patient will contact the office, otherwise follow-up as needed. Coding Level of Care Code Est Pt Level 3 (57778) Complex EM visit Add On G2211 Diagnoses Primary osteoarthritis of both knees M17.0 Osteoarthritis type: primary CPT Codes Coding - Joint 7: 30497 - Glenohumeral/Tronchanteric Bursa/Intraarticular ([id number])
== END 2024-10-13 11:29 | disposition home or self-care (01) ==
LOC: HO.HOS 11:04
PROVIDERS: PCP Internal Medicine; Visit Provider Physician Assistant
DX: M17.0 Bilateral primary osteoarthritis of knee (principal)
CPT/HCPCS: 20610; 99213

== ENCOUNTER → 2024-10-13 11:04 | Outpatient (BNVA) | payer OTHER, SELFPAY | PROVIDERS: PCP Internal Medicine; Visit Provider Physician Assistant | DX: M17.0 Bilateral primary osteoarthritis of knee (principal) | CPT/HCPCS: 20610; 99212; J1010; J2003 ==

== ENCOUNTER 2025-01-23 10:35 | Outpatient (AMB) | payer OTHER, SELFPAY ==
--- NOTE | 2025-01-23 10:43 | MHC.OFFVIS ---
Vital Signs 01/23/25 10:45 Height 5 ft 6 in Weight 214 lb 4.629 oz BMI 34.6 BP 122/68 Blood Pressure Location Rt brachial Position Sitting Pulse 84 Intake Visit Reasons: 6 mo f/u Gerd, CIC Intake Note: Nasrin presents in office today in follow up GERD and CIC. CC: Patient c/o heartburn, and constiption if she does not take the Linzess. She also reports seeing blood in stool. 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 She is now ready to re schedule her colonoscopy, she had to cancel the last r/t a family emergency. She is now on Wegovy and is having occasional HB, alex when she does not move her bowels well. Will rx famotidine prn. There are no prior problems with anesthesia or sedation. There are no infectious disease problems. No known FHX crc or polyps ROV 6 mos. Medications: New famotidine (Pepcid) 40 mg PO DAILY PRN 30 tabs 6RF heartburn K21.9 - Gastro-esophageal reflux disease without esophagitis Refilled bisacodyl (Dulcolax (bisacodyl)) 10 mg (2 x 5 mg) PO BEDTIME 60 tabs 6RF 30 days K59.04 - Chronic idiopathic constipation peg 3350-electrolytes 236-22.74-6.74 -5.86 gram (Golytely) until fecal effluent is clear; do not exceed a total volume of 2,000 mL 240 mL PO Q10M 4,000 mL 0RF 1 day Z12.11 - Encounter for screening for malignant neoplasm of colon linaclotide (Linzess) 290 mcg PO QAM 30 caps 6RF 30 days K59.04 - Chronic idiopathic constipation TODAY'S VISIT Setswana #[id number] [facility] Medical History Obesity, morbid High cholesterol Hypertension Surgical History Hx of tubal ligation Family History Father Cancer of neck Brother Leukemia Paternal Aunt Vaginal cancer Social History Alcohol intake: current Alcohol intake frequency: does not drink Patient Tobacco Use Status: Never used Tobacco Current occupational status: unemployed Review of Systems Const Denies fatigue, Denies fever(s), Denies night sweats, Denies poor appetite and Denies weight loss ENT Reports Normal hearing present, Denies dental pain, Denies dysphagia, Denies hearing loss, Denies mouth pain, Denies odynophagia, Denies throat swelling, Denies tongue swelling and Reports other (Dentition adequate) Card Reports no additional complaints Resp Reports no additional complaints GI Details: Denies abdominal pain, Denies melena, Denies bloating, Denies hematochezia, Reports constipation, Denies GI cramping, Denies dysphagia, Denies excessive flatus, Denies early satiety, Reports heartburn, Denies diarrhea, Denies nausea, Denies odynophagia, Denies vomiting and Denies hematemesis Skin/Breast Denies pruritus, Denies lesions, Denies rash and Denies jaundice Neuro Reports Normal hearing present and Denies Abnormal speech present Endo Denies fatigue Aller/Immun Denies throat swelling and Denies tongue swelling Physical Exam Vital Signs: Last Vital Signs Pulse 84 01/23/25 10:45 BP 122/68 01/23/25 10:45 BMI result Body Mass Index 34.6 Const General: cooperative, no acute distress, well developed and well groomed Nutritional Appearance: well nourished and obese Orientation/consciousness: oriented to person, oriented to place and oriented to time Limitations: language barrier HEENT Head: Yes normocephalic and Yes atraumatic Eyes General: appearance normal, both eyes and all related structures Pupils: Equal, round and reactive pupils present Neck Neck: Yes normal visual inspection and Yes no lymphadenopathy Thyroid: Thyroid normal Resp Effort & Inspection: normal respiratory effort and able to speak in complete sentences Auscultation: clear to auscultation bilaterally Cardio Rate: regular rate Rhythm: regular rhythm Heart sounds: Normal, physiologic split S2 sound present Peripheral pulses: radial pulses present and posterior tibial pulses present GI Inspection: No distended, No Abdominal panniculus present and Yes obesity Palpation (GI): Soft to palpation, nontender, no guarding, not rigid and No hepatosplenomegaly present Percussion: Yes normal to percussion Auscultation: normal bowel sounds Rectal Exam - Female: deferred Skin General skin exam: no rashes or lesions noted, turgor normal, skin not dry, no jaundice, No spider nevi and no striae Rashes: no rashes Nails: normal Neuro General: oriented to person, oriented to place and oriented to time Cranial nerves: Yes Equal, round and reactive pupils present and Yes Normal hearing present Speech: No Abnormal speech present Extrem General: Yes normal to inspection, No clubbing, No cyanosis and No edema Psych Appearance: grossly normal and well kempt Mental Status: mental status grossly normal Speech and movement: Normal speech and movement present Affect: normal affect Attitude: cooperative Thought process: Normal thought process present and not confabulating Thought content: Normal thought content present Insight: Fair insight present (Psych) and Limited insight present (Psych) Judgement: Fair judgement present (Psych) and Limited judgement present (Psych) Assessment & Plan Assessment & Plan (1) GERD (gastroesophageal reflux disease): Code(s): K21.9 - Gastro-esophageal reflux disease without esophagitis Category: Medical (2) Chronic idiopathic constipation: Code(s): K59.04 - Chronic idiopathic constipation Category: Medical Plan Setswana # She is doing very well on her LInzess at 290mcg and we added famotidine at the last visit. HER ONLY COMPLAINT IS THAT SHE HAS HAD SOME DIFFICULTIES OBTAINING both of her prescriptions from the pharmacy. I really do not know why this is since I had extended her refills through the end of this month. I do not know if there could be a prior approval problem at play. I will ask my staff to call and see what the problem is. She continues on her Zepbound which is part of the problem with her constipation and her GERD. However, she seems to have stabilized at 5 mg. I let her know that if they do need to increase the dose then she may have increased GI symptoms and that she should talk to me about that so that we can change her management plan accordingly. Return office visit in 6 months COLONOSCOPY BIOPSY TODAYS VISIT Medications: Refilled linaclotide (Linzess) 290 mcg PO QAM 30 caps 6RF 30 days K59.04 - Chronic idiopathic constipation famotidine (Pepcid) 40 mg PO DAILY PRN 30 tabs 6RF heartburn K21.9 - Gastro-esophageal reflux disease without esophagitis Coding Level of Care Code Est Pt Level 3 (50832) Diagnoses GERD (gastroesophageal reflux disease) K21.9 Chronic idiopathic constipation K59.04
[2025-01-23 10:45] VITALS: BP 122/68; PULSE 84; BMI 34.6
== END 2025-01-23 12:09 | disposition home or self-care (01) ==
LOC: HO.HGI 10:36
PROVIDERS: PCP Internal Medicine; Visit Provider Nurse Practitioner
DX: K21.9 Gastro-esophageal reflux disease without esophagitis (principal); K59.04 Chronic idiopathic constipation
CPT/HCPCS: 99213

== ENCOUNTER → 2025-01-23 10:35 | Outpatient (BNVA) | payer OTHER, SELFPAY | PROVIDERS: PCP Internal Medicine; Visit Provider Nurse Practitioner | DX: Z01.818 Encounter for other preprocedural examination (principal); K59.04 Chronic idiopathic constipation; K21.9 Gastro-esophageal reflux disease without esophagitis | CPT/HCPCS: 99212 ==

== ENCOUNTER 2025-03-09 11:31 | Outpatient (AMB) | payer OTHER, SELFPAY ==
--- NOTE | 2025-03-09 11:38 | A.OFFVIS_ITS ---
Vital Signs 03/09/25 11:39 Height 5 ft 6 in Weight 214 lb BMI 34.5 Intake Visit Reasons: inj-B/L knee OA - Last Injections 10/13/24 Intake Note: Nasrin is a 59 year old [place] speaking female who presents today for bilateral knee injections, last injections on 10/13/24. Patient reports last injections provided about 6 months of good pain relief. Todays states she feels like her pain is slowing coming back and would like to repeat injections today.. 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: Priscila BUCKLEY/MONA Allergies No Known Allergies Allergy (Verified 03/09/25 11:39) Medication List - Last Reconciled 03/09/25 by Charlie Landis PA-C bisacodyl (Dulcolax (bisacodyl)) 10 mg (2 x 5 mg) PO BEDTIME 30 days blood pressure test kit-large As directed cyclobenzaprine 10 mg PO TID PRN ezetimibe 10 mg PO DAILY famotidine (Pepcid) 40 mg PO DAILY PRN hydrochlorothiazide 25 mg PO DAILY linaclotide (Linzess) 290 mcg PO QAM 30 days losartan 100 mg PO DAILY melatonin mg PO naproxen 500 mg PO BID peg 3350-electrolytes 236-22.74-6.74 -5.86 gram (Golytely) 240 mL PO Q10M 1 day rosuvastatin 40 mg PO DAILY tirzepatide (weight loss) (Zepbound) 5 mg subcut QWEEK tramadol 50 mg PO BID PRN triamcinolone acetonide 0.1% appl topical HPI Comments Details: History of Present Illness The patient is a 59-year-old female presenting for a follow-up on bilateral knee pain, having previously received injections, most recent being 10/13/24. She reports her right knee feels worse and has been giving out, and she notes that one knee appears more swollen than the other. Previous x-rays have shown severe arthritis in the right knee, particularly in the medial compartment. The patient lives on the 4th floor and reports feeling more pressure on her left knee when ascending the stairs. She denies any other medical conditions, including diabetes. Social History - Housing: The patient lives on the 4th floor and must use stairs. - Functional Status: The patient is able to walk and perform most activities, though with some issues. [facility] Medical History Obesity, morbid High cholesterol Hypertension Surgical History Hx of tubal ligation Family History Father Cancer of neck Brother Leukemia Paternal Aunt Vaginal cancer Social History Alcohol intake: current Alcohol intake frequency: does not drink Patient Tobacco Use Status: Never used Tobacco Current occupational status: unemployed Review of Systems Narrative Review of Systems - Musculoskeletal: Reports bilateral knee pain, with the right being worse. - She also reports episodes of the knee giving out and swelling. - Endocrine: Denies diabetes. - All other systems: Negative, as the patient denies any other medical conditions. Physical Exam Exam Exam: Physical Exam - Vital Signs: BMI result Body Mass Index 34.5 Office Procedures AMB Joint Injection/Aspiration Joint Injection/Aspiration Primary Site: Right Knee Secondary Site: Left Knee Prep: site was prepped using aseptic technique, ethochloride spray was applied and injection warnings given Injected: 40 mg of, Decadron, with 3 mL of, 1% plain Lidocaine, 0.25% Bupivacaine and in the joint Approach Used: anterolateral Procedure: The patient tolerated the procedure well and there was some relief with the local anesthesia Coding 52392 - Glenohumeral/Tronchanteric Bursa/Intraarticular Procedure code (CPT) selection complete Assessment & Plan Assessment & Plan (1) Osteoarthritis of knees, bilateral: Code(s): M17.0 - Bilateral primary osteoarthritis of knee Category: Medical Qualifiers: Osteoarthritis type: primary Qualified Code(s): M17.0 - Bilateral prima ry osteoarthritis of knee Plan Plan 1. Bilateral Knee Osteoarthritis The patient presents with symptoms of pain, instability, and swelling secondary to severe bilateral knee osteoarthritis, which is worse in the right knee with medial compartment collapse. Total knee replacement was discussed as the definitive treatment for pain relief and stability, but the patient wishes to postpone surgery at this time. The plan is to proceed with conservative pain management. The patient has elected to receive injections in both knees and will be provided with a knee brace for stability. She was fit for bilateral genumed braces in the office today. Other non-operative options, including creams and physical therapy, were also mentioned. The patient was counseled that she must wait three months after an injection before she can undergo knee replacement surgery, should she choose that option in the future. A detailed discussion regarding the logistics and recovery from knee replacement surgery was provided at the patient's request. Consent The patient provided verbal consent for bilateral knee injections after the risks, benefits, and alternatives were discussed. She signed a consent form prior to the procedure. Patient was informed and verbally consented to the use of an ambient scribe for clinic note documentation during this visit. Coding Level of Care Code Est Pt Level 3 (44554) Add On Problem Visit Only Diagnoses Primary osteoarthritis of both knees M17.0 Osteoarthritis type: primary CPT Codes Coding - Joint 7: 45257 - Glenohumeral/Tronchanteric Bursa/Intraarticular ([id number])
[2025-03-09 11:39] VITALS: BMI 34.5
== END 2025-03-09 12:15 | disposition home or self-care (01) ==
LOC: HO.HOS 11:31
PROVIDERS: PCP Internal Medicine; Visit Provider Physician Assistant
DX: M17.0 Bilateral primary osteoarthritis of knee (principal)
CPT/HCPCS: 20610; 99213

== ENCOUNTER → 2025-03-09 11:31 | Outpatient (BNVA) | payer OTHER, SELFPAY | PROVIDERS: PCP Internal Medicine; Visit Provider Physician Assistant | DX: M17.0 Bilateral primary osteoarthritis of knee (principal); M25.561 Pain in right knee; M25.562 Pain in left knee; M25.461 Effusion, right knee; M25.462 Effusion, left knee | CPT/HCPCS: 20610; 99212; J0665; J1100; J2003 ==